=== PATIENT | male | born 1960 | race Caucasian/White ===

== ENCOUNTER 2018-08-11 16:22 | Emergency (ER) | payer MEDICAID ==
[~2018-08-11] VITALS: Ht 172.7 cm; Wt 83.9 kg
[2018-08-11 16:24] VITALS: BP 158/98; PULSE 63; RESP 16; Ht 172.7 cm; Wt 83.9 kg
--- NOTE | 2018-08-11 21:07 | ERD ---
ER Documentation Chief Complaint Chief Complaint C/O LT TOE OPEN BLISTER FOOT PAIN. DENIES ANY HX OF DM HPI This is a 57-year-old male who presents to the ED with an ulcer to his left third toe times 1 week. No trauma reported. Patient has insurance but has not established care with a primary care provider yet. He also complains of subjective plantar numbness and tingling to his bilateral feet. He has never been diagnosed with diabetes. He drives a problem drives a he denies any fevers, chills. Denies any drainage from his wound. Denies any chest pain, shortness of breath. No other complaints. ROS All systems reviewed and are negative except as per history of present illness. Allergies Allergies: Coded Allergies: No Known Allergy (Unverified , 08/11/18) PMhx/Soc Medical and Surgical Hx: pt denies Medical Hx, pt denies Surgical Hx Hx Alcohol Use: No Hx Substance Use: No Hx Tobacco Use: No Smoking Status: Never smoker Physical Exam Vitals Vital Signs Date Temp Pulse Resp B/P (MAP) Pulse Ox O2 O2 Flow FiO2 Time Delivery Rate 08/11/18 97.8 63 16 158/98 99 16:24 (118) Physical Exam Const: No acute distress Head: Atraumatic Eyes: Normal Conjunctiva ENT: Normal External Ears, Nose and Mouth. Neck: Full range of motion. No meningismus. Resp: Clear to auscultation bilaterally Cardio: Regular rate and rhythm, no murmurs Abd: Soft, non tender, non distended. Normal bowel sounds Skin: No petechiae or rashes Back: No midline or flank tenderness Ext: + Superficial ulcer to the lateral aspect of the left third toe. No active drainage. No surrounding erythema or edema. No cyanosis, or edema. Sensation and motor grossly intact. DP, PT pulses 2+. Cap Refill less than 2 seconds. Neur: Awake and alert Psych: Normal Mood and Affect Result Diagram: 08/11/18 1845 08/11/18 1845 Results 24 hrs Laboratory Tests Test 08/11/18 18:45 White Blood Count 6.6 10^3/ul Red Blood Count 4.33 10^6/ul Hemoglobin 12.8 g/dl Hematocrit 36.9 % Mean Corpuscular Volume 85.2 fl Mean Corpuscular Hemoglobin 29.6 pg Mean Corpuscular Hemoglobin Concent 34.7 g/dl Red Cell Distribution Width 12.5 % Platelet Count 240 10^3/UL Mean Platelet Volume 11.2 fl Immature Granulocytes % 0.300 % Neutrophils % 55.9 % Lymphocytes % 30.8 % Monocytes % 10.4 % Eosinophils % 2.0 % Basophils % 0.6 % Nucleated Red Blood Cells % 0.0 /100WBC Immature Granulocytes # 0.020 10^3/ul Neutrophils # 3.7 10^3/ul Lymphocytes # 2.0 10^3/ul Monocytes # 0.7 10^3/ul Eosinophils # 0.1 10^3/ul Basophils # 0.0 10^3/ul Nucleated Red Blood Cells # 0.0 10^3/ul Erythrocyte Sedimentation Rate 45 mm/Hr Sodium Level 135 mmol/L Potassium Level 4.1 mmol/L Chloride Level 105 mmol/L Carbon Dioxide Level 24 mmol/L Anion Gap 6 Blood Urea Nitrogen 26 mg/dl Creatinine 1.03 mg/dl Est Glomerular Filtrat Rate mL/min > 60 mL/min Glucose Level 240 mg/dl Calcium Level 9.0 mg/dl Total Bilirubin 0.4 mg/dl Direct Bilirubin 0.00 mg/dl Indirect Bilirubin 0.4 mg/dl Aspartate Amino Transf (AST/SGOT) 27 IU/L Alanine Aminotransferase (ALT/SGPT) 28 IU/L Alkaline Phosphatase 85 IU/L C-Reactive Protein 1.6 mg/dl Total Protein 7.3 g/dl Albumin 3.9 g/dl Globulin 3.40 g/dl Albumin/Globulin Ratio 1.14 Procedures/MDM LABS CBC: no e/o of systemic infection or severe anemia CMP: + Glucose of 240. no e/o severe acidosis, alkalosis, renal failure, diabetic ketoacidosis, liver disease ESR: 45 CRP 1.6 DIAGNOSTIC IMAGING: PROCEDURE: DX Foot CLINICAL INDICATION: Left third toe ulcer. Evaluate for osteomyelitis. TECHNIQUE: Three views. COMPARISON: None FINDINGS: Osseous structures: Normal bone mineralization. No acute fracture. No lytic or blastic changes. Calcaneal osteophyte/s present. Joint space: Joint spaces maintained. Soft tissues: No soft tissue swelling. No radiopaque foreign body or soft tissue gas. IMPRESSION: No radiographic evidence of osteomyelitis. At least 50% of the bony to the demineralized for osteomyelitis to be identified on plain films. If further imaging is indicated, non emergent MR of the left forefoot is recommended. MEDICAL DECISION MAKING: This is a 57-year-old male who presents with a ulcer to his left toe. He is neurovascularly intact. Workup as above reveals elevated glucose of 240. Inflammatory markers ESR and CRP are mildly elevated. X-ray does not show any clear evidence of osteomyelitis. He has no evidence to suggest abscess, cellulitis, sepsis or any other deep tissue infection. Patient's symptoms are likely related to his uncontrolled sugars secondary to undiagnosed diabetes mellitus type 2. Patient was given referral to Dr. Richard for further management. He will likely need to be started on treatment for his diabetes. Strict return precautions discussed. He does not need any antibiotics or further emergent workup at this time. PRESCRIPTIONS: None SPECIALIST FOLLOW UP RECOMMENDED: Dr. Richard Patient has been advised to follow up with primary care in 1-2 days. Blood Pressure Assessment: Patient's blood pressure was elevated (>120/80) but appears stable without evidence of hypertension emergency or urgency. The patient was counseled about the risks of hypertension and urged to pursue outpatient monitoring and therapy within a week with their primary care physician. Departure Diagnosis: Primary Impression: Ulcer Additional Impression: Elevated glucose Condition: Stable Patient Instructions: Diabetic Foot Ulcers, DIABETES, General Info, Diabetic Foot Care Referrals: CINDY RICHARD [facility] YOU HAVE RECEIVED A MEDICAL SCREENING EXAM AND THE RESULTS INDICATE THAT YOU DO NOT HAVE A CONDITION THAT REQUIRES URGENT TREATMENT IN THE EMERGENCY DEPARTMENT. FURTHER EVALUATION AND TREATMENT OF YOUR CONDITION CAN WAIT UNTIL YOU ARE SEEN IN YOUR DOCTORS OFFICE WITHIN THE NEXT 1-2 DAYS. IT IS YOUR RESPONSIBILITY TO MAKE AN APPOINTMENT FOR FOLOW-UP CARE. IF YOU HAVE A PRIMARY DOCTOR --you should call your primary doctor and schedule an appointment IF YOU DO NOT HAVE A PRIMARY DOCTOR YOU CAN CALL OUR PHYSICIAN REFERRAL HOTLINE AT IF YOU CAN NOT AFFORD TO SEE A PHYSICIAN YOU CAN CHOSE FROM THE FOLLOWING [facility] CLINICS [facility] [address] [facility] [address] [facility] [address] [facility] [address] [facility] [address] [facility] [address] [facility]. [facility] YOU HAVE RECEIVED A MEDICAL SCREENING EXAM AND THE RESULTS INDICATE THAT YOU DO NOT HAVE A CONDITION THAT REQUIRES URGENT TREATMENT IN THE EMERGENCY DEPARTMENT. FURTHER EVALUATION AND TREATMENT OF YOUR CONDITION CAN WAIT UNTIL YOU ARE SEEN IN YOUR DOCTORS OFFICE WITHIN THE NEXT 1-2 DAYS. IT IS YOUR RESPONSIBILITY TO MAKE AN APPOINTMENT FOR FOLOW-UP CARE. IF YOU HAVE A PRIMARY DOCTOR --you should call your primary doctor and schedule and appointment IF YOU DO NOT HAVE A PRIMARY DOCTOR YOU CAN CALL OUR PHYSICIAN REFERRAL HOTLINE AT . IF YOU CAN NOT AFFORD TO SEE A PHYSICIAN YOU CAN CHOSE FROM THE FOLLOWING [facility] INSTITUTIONS: [facility] [id number] [place] [id number] [facility] [address] [place], [place] [id number] [place] [address] [address] [place] [address] Additional Instructions: You must follow-up with your primary care provider, your lab results today show that you have elevated glucose and you may need treatment for your diabetes. Please follow-up at the wound care center for evaluation of your ulcer. Return here for any new or worsening symptoms. GAURAV BANDA PA-C Aug 11, 2018 21:07
== END 2018-08-11 21:02 | disposition home or self-care (01) ==
LOC: FTE 16:22
DX: L97.529 Non-pressure chronic ulcer of other part of left foot with unspecified severity (principal); R73.9 Hyperglycemia, unspecified
CPT/HCPCS: 36415; 73630; 80053; 85025; 85651; 86140; Z7502